=== PATIENT | female | born 1985 | race Caucasian/White ===

== ENCOUNTER 2019-09-14 12:25 | Inpatient (IN) | payer OTHER, BC ==
--- NOTE | 2019-09-14 12:36 | ED ---
Lower Extremity - HPI Summary HPI Summary: The patient is a 34 y/o F arriving by ambulance to [facility] with a chief complaint of right ankle pain with concern for fracture this afternoon. She reports that she was on a ladder four feet up when the ladder slipped due to ice on the ground, causing her to fall and getting her right foot stuck between the ladder and the roof she was on with her weight on the ladder. She is able to move her toes, and she denies any numbness. There is swelling and bruising in the anterior lower leg. She did not hit her head, and the right thigh is not painful. Currently, her pain is rated 5/10 in severity. She was administered 200mcg Fentanyl in the ambulance which helped to alleviate pain. Elevation also helps to control the pain. Movement aggravates the pain. PMHx: left knee dislocation. Former smoker, occasional EtOH, marijuana use. Medications reviewed. Allergies noted. - History of Current Complaint Stated Complaint: FALL ANKLE INJURY Time Seen by Provider: 09/14/19 12:26 Hx Obtained From: Patient Mechanism Of Injury: Fall From Height Of: - four feet Onset of Pain: Immediate Onset/Duration: Minutes Severity Initially: Severe Severity Currently: Moderate Pain Intensity: 5 Pain Scale Used: 0-10 Numeric Timing: Constant Location: Is Discrete @ - right ankle Character Of Pain: Sharp Associated Signs And Symptoms: Positive: Swelling, Bruising. Negative: Other - head injury, right thigh pain, numbness in foot Aggravating Factor(s): Movement Alleviating Factor(s): Rest, Elevation, Other - Fentanyl 200mcg in ambulance - Allergies/Home Medications Allergies/Adverse Reactions: Allergies Allergy/AdvReac Type Severity Reaction Status Date / Time No Known Allergies Allergy Verified 09/14/19 12:42 Home Medications: Home Medications Solifenacin Succinate [Vesicare] 5 mg PO DAILY 09/14/19 [History Confirmed 09/14] PMH/Surg Hx/FS Hx/Imm Hx Endocrine/Hematology History: Denies: Hx Diabetes Musculoskeletal History: Reports: Other Musculoskeletal History - left knee dislocation Sensory History: Denies: Hx Legally Blind, Hx Deafness Opthamlomology History: Denies: Hx Legally Blind EENT History: Denies: Hx Deafness - Surgical History Surgical History: None Surgery Procedure, Year, and Place: none - Family History Known Family History: Negative: Hypertension - Social History Alcohol Use: Occasionally Hx Substance Use: Yes Substance Use Type: Reports: Marijuana Hx Tobacco Use: Yes Smoking Status (MU): Former Smoker Review of Systems Positive: Decreased ROM - right ankle, Other - pain in right ankle; Negative: right thigh pain Positive: Bruising - right anterior ankle, Other - swelling in right anterior ankle Neurological: Other - Negative: head injury Negative: Numbness All Other Systems Reviewed And Are Negative: Yes Physical Exam - Summary Physical Exam Summary: Constitutional: Well-developed, Well-nourished, Alert. (-) Distressed Skin: Bruising to right medial ankle. Abrasion cash. Warm, Dry HENT: Normocephalic; Atraumatic Eyes: Conjunctiva normal Neck: Musculoskeletal ROM normal neck. (-) JVD, (-) Stridor, (-) Nuchal rigidity Cardio: Rhythm regular, rate normal, Heart sounds normal; Intact distal pulses; Radial pulses are 2+ and symmetric. (-) Murmur Pulmonary/Chest wall: Effort normal. (-) Respiratory distress, (-) Wheezes, (-) Rales Abd: Soft, (-) tenderness, (-) Distension, (-) Guarding, (-) Rebound Musculoskeletal: Swelling and deformity of the distal right tib/fib. No ttp foot /ankle or knee. 2+ DP pulse. Normal ROM in all other extremities. (-) Edema Lymph: (-) Cervical adenopathy Neuro: Alert, Oriented x3 Psych: Mood and affect Normal Triage Information Reviewed: Yes Vital Signs Reviewed: Yes Procedures - Sedation Patient Received Moderate/Deep Sedation with Procedure: No - Splinting Right Lower Extremity Location: right ankle Hand-Made Type: plaster Splint: posterior short leg Pre-Proc Neuro Vasc Exam: normal Post-Proc Neuro Vasc Exam: normal, unchanged from pre-exam Diagnostics - Laboratory Result Diagrams: 09/14/19 14:27 09/14/19 14:27 Lab Statement: Any lab studies that have been ordered have been reviewed, and results considered in the medical decision making process. - Radiology R Tib/Fib XR Radiology Interpretation Completed By: Radiologist Summary of Radiographic Findings: Impression: 1. Noncomminuted spiral fracture at the distal diaphysis distal metaphysis junction of the tibia with one cortex width medial and posterior displacement and mild foreshortening. Adjacent grossly noncomminuted distal diaphyseal fracture of the fibula with similar displacement. 2. While obliquity limits assessment there is no gross evidence for widening of the ankle mortise. 3. Negative for more proximal fracture of the tibia or fibula. 4. Soft tissue swelling greatest over the distal medial, lateral, and anterior aspects. ED physician has reviewed this report. R Ankle XR Radiology Interpretation Completed By: Radiologist Summary of Radiographic Findings: Impression: 1. Noncomminuted spiral fracture at the distal diaphysis distal metaphysis junction of the tibia with one cortex width medial and posterior displacement and mild foreshortening. Adjacent grossly noncomminuted distal diaphyseal fracture of the fibula with similar displacement. 2. While obliquity limits assessment there is no gross evidence for widening of the ankle mortise. 3. Negative for more proximal fracture of the tibia or fibula. 4. Soft tissue swelling greatest over the distal medial, lateral, and anterior aspects. ED physician has reviewed this report. Re-Evaluation - Re-Evaluation First Eval Re-Evaluation Time: 14:00 Comment: Splint placed on patient. She continues to be elevated. Lower Extremity Course/Dx - Course Course Of Treatment: 34-year-old female presents with right lower x-ray pain after a fall. - Physical exam with tenderness and deformity of the distal tib- fib. No ankle or foot tenderness. Suspect fracture. 2+ DP pulse. SILT. Plain films show a spiral fracture of the tibia and fibula. Placed in short leg Shaka. - admit to ortho for surgery tmrw am. leg elevated. - Diagnoses Provider Diagnoses: Tibia/fibula fracture - Physician Notifications Discussed Care Of Patient With: Margo Argueta - orthopedics Time Discussed With Above Provider: 14:10 Instructed by Provider To: Other - I discussed the patient's case with Dr. Argueta , and she accepts the patient for admission for surgery. Discharge ED - Sign-Out/Discharge Documenting (check all that apply): Patient Departure - Patient accepted for admission by Dr. Argueta. - Discharge Plan Condition: Stable Disposition: ADMITTED TO [facility] Referrals: No Primary Care Phys,NOPCP [Primary Care Provider] - - Billing Disposition and Condition Condition: STABLE Disposition: Admitted to [facility] - Attestation Statements Document Initiated by Scribe: Yes Documenting Scribe: Devi Gómez Provider For Whom Scribe is Documenting (Include Credential): Dr. Jony Porter MD Scribe Attestation: I, Devi Gómez, scribed for Dr. Jony Porter MD on 09/14/19 at 1537. Scribe Documentation Reviewed: Yes Provider Attestation: The documentation as recorded by the tracyibe, Devi Gómez accurately reflects the service I personally performed and the decisions made by me, Dr. Jony Porter MD Status of Scribe Document: Viewed
[2019-09-14] MEDS ORDERED: Morphine 4 MG/ML VIAL (1 ml) 4 MG/ML VIAL IV ONE ×2 (12:39→13:28)
[2019-09-14] MEDS ORDERED: Ondansetron INJ* 2 MG/ML VIAL IV ONE (12:39)
[2019-09-14] MEDS ORDERED: HYDROmorphone INJ* 0.5 MG/0.5 ML SYRINGE IV SLOW PU ONE (13:52)
[2019-09-14 14:40] LABS: ABS Monocytes 0.4 10^3/ul (0-0.8); ABS Neutrophils 7.8 10^3/ul (1.5-7.7); Hematocrit 37 % (35-47); Hemoglobin 12.4 g/dL (12.0-16.0); Lymphocyte % 10.9 %; Mean Corpuscular HGB Conc 34 g/dL (31-36); Mean Corpuscular Hemoglobin 31 pg (27-31); Mean Corpuscular Volume 91 fL (80-97); Mean Platelet Volume 8.4 fL (7.4-10.4); Platelet Count 277 10^3/uL (150-450); Red Blood Count 4.03 10^6 /uL (3.70-4.87); Red Cell Distribution Width 13 % (10-15); White Blood Count 9.2 10^3/uL (3.5-10.8)
[2019-09-14 14:47] LABS: INR 1.05 (0.82-1.09)
[2019-09-14] MEDS ORDERED: Ondansetron ODT TAB* 4 MG PO PRN (14:49)
[2019-09-14] MEDS ORDERED: Ondansetron INJ* 2 MG/ML VIAL IV PRN (14:49)
[2019-09-14] MEDS ORDERED: diPHENhydraMINE PO* 25 MG PO PRN (14:49)
[2019-09-14] MEDS ORDERED: diPHENhydraMINE IV* 50 MG/ML 1 ml VIAL (BENADRYL) IV PRN (14:49)
[2019-09-14] MEDS ORDERED: Magnesium Hydroxide LIQ* 30 ML UDC PO PRN (14:49)
[2019-09-14] MEDS ORDERED: oxyCODONE TAB* 5 MG TAB PO PRN (14:49)
[2019-09-14 15:09] LABS: Calcium 9.1 mg/dL (8.6-10.3)
[2019-09-14 15:15] LABS: BUN/Creatinine Ratio 13.8 (8-20); EGFR African American 142.3 (>60); EGFR Non-African American 117.6 (>60)
[2019-09-14] MEDS: oxyCODONE TAB* 5 MG TAB PO PRN ×2 (15:19→19:41)
--- NOTE | 2019-09-14 15:25 | PN ---
Progress Note - Progress Note Date of Service: 09/14/19 Note: Admission H&P dictated, please see report for full details. She has a right tib/fib fracture and will be taken to the OR with Dr Bernal Elevate and ice her RLE to reduce swelling, keep splint CDI. Her is Krystian Loya [phone]
--- NOTE | 2019-09-14 16:43 | HP ---
ADMISSION HISTORY AND PHYSICAL: DATE OF ADMISSION: 09/14/19 ATTENDING ORTHOPEDIC PROVIDER: Dr. aSul Bernal.* (DICTATED BY LASHELL WADE) PRIMARY CARE PROVIDER: Dr. Bardales in [place]. ADMISSION DIAGNOSIS: Right tibia and fibula fracture. CHIEF COMPLAINT: Right tib-fib fracture. HISTORY OF PRESENT ILLNESS: The patient is a 34-year-old female who presents to [facility] on 09/14/19 after sustaining a fall at work from a height of approximately 4 feet. She was standing on a ladder kalyani and rode the ladder down to the ground, her right foot turning underneath of her. She had immediate right ankle pain without pain elsewhere. She did not hit her head, lose consciousness or suffer any other injuries. She was unable to bear weight and her brought her into the emergency room. In the emergency room, x-rays displayed right distal tibia and fibula fractures and she was placed in a short leg splint and elevated on pillows with ice. I am seeing her after she has been splinted by the emergency room. Her pain is well controlled currently, though she has sharp severe nonradiating pain with any movement which is relieved with rest. PAST MEDICAL HISTORY: Significant for endometriosis, overactive bladder. PAST SURGICAL HISTORY: The patient has a history of knee arthroscopy on the left knee. She has no history of complications with anesthesia. MEDICATIONS: 1. contraceptive pill. The patient is unsure of brand. 2. VESIcare 5 mg daily. ALLERGIES: No known drug allergies. FAMILY HISTORY: No history of complications with anesthesia. SOCIAL HISTORY: The patient lives at home with her Krystian in [place]. They both work as metal roofers. She sustained this injury while at work. She denies any alcohol use. She does not smoke any cigarettes. REVIEW OF SYSTEMS: General: Negative for fever, chills, or recent illness. HEENT: Negative for any head trauma, headache, or change in vision. Cardiac: Negative for any chest pain. No history of IA. Respiratory: Negative for any shortness of breath. GI: Negative for nausea, vomiting, diarrhea. : Negative for dysuria. Positive for overactive bladder. Musculoskeletal: Positive for right ankle pain. No pain of left leg or bilateral upper extremities. Neuro: Denies any decreased sensation, numbness or tingling of the extremities. Hematology: No history of blood clots. PHYSICAL EXAMINATION GENERAL: Well appearing, in no acute distress. VITAL SIGNS: Temperature 98.2, pulse rate 94, oxygen saturation 100% on room air, respiratory rate 17, blood pressure 160/76. HEENT: Normocephalic, atraumatic. Extraocular movements are intact. LUNGS: Clear to auscultation bilaterally without wheezes, rales, or rhonchi. CARDIAC: S1, S2. No murmur. Regular rate and rhythm. ABDOMEN: Bowel sounds normoactive. Soft, nontender. No guarding. No rigidity. MUSCULOSKELETAL: Nontender to palpation of midline cervical, thoracic, or lumbar spine. Bilateral upper extremities: Skin envelope intact. Nontender to palpation. Able to flex and extend digits, wrists, elbows, and shoulders without any pain. Lower extremities: Left lower extremity, skin envelope intact; nontender to palpation; able to flex and extend MTPs, ankle, knee, and hip without pain. Right lower extremity, the patient has a lower leg splint. Visible skin is intact. There is no tenderness to palpation of the knee, femur , or hip. Able to flex and extend at the MTPs, knee and hip without any pain. NEURO: Sensation intact to light touch distally bilateral lower extremities. VASCULAR: Capillary refill less than 2 seconds distally bilateral lower extremities. DIAGNOSTIC STUDIES/LAB DATA: Right ankle x-ray demonstrates noncomminuted spiral fracture at the distal diaphysis and distal metaphysis junction of the tibia with 1 cortex with medial and posterior displacement with mild shortening , distal diaphyseal fracture of the fibula with similar displacement. Laboratory studies: Hemoglobin 12.4, hematocrit 37, platelet count 277. INR 1.05. Sodium 137, potassium 4.0, creatinine 0.58. ASSESSMENT: Right tibia and fibula fracture. PLAN: The patient will be nonweightbearing on the right lower extremity. She will keep it elevated on 4 pillows as well as with ice. . CT of the right lower leg, CBC, BMP, INR, type and screen, Chest x-ray and EKG have been ordered. The patient can have a regular diet. I will start her on subcu heparin 5000 units q.8 hours. The patient will tentatively go to the operating room on , 09/16/19, with Dr. Saul Bernal for ORIF of right tibia and fibula fracture. She will need to be n.p.o. and heparin stopped at midnight on Friday night. RCRI: The patient has 0 points on the RCRI scale with no high -risk surgery planned, no ischemic heart disease, no congestive heart failure, no history of cerebrovascular disease, no pre-op insulin, and preop creatinine is less than 2. LASHELL WADE [id number]/[facility] #: [id number] [facility]ALTHAlexx
[2019-09-14] MEDS: Cyclobenzaprine TAB* 10 MG PO PRN (16:51)
[2019-09-14] MEDS: traMADol TAB* 50 MG PO PRN (16:52)
[2019-09-14] MEDS: Morphine INJ* 2 MG/ML 1 ML SYRINGE (TWO MG - NEW SYRINGE VERSION) IV PRN ×2 (18:35→23:11)
[2019-09-14] MEDS: Docusate CAP* 100 MG PO SCH (19:41)
[2019-09-14] MEDS: Magnesium Hydroxide LIQ* 30 ML UDC PO SCH (19:41)
[2019-09-14] MEDS: Acetaminophen TAB* 325 MG PO SCH (23:11)
[2019-09-14] MEDS: Heparin VIAL(*) 5000 UNITS/ML VIAL (FIVE THOUSAND) SUBCUT SCH (23:11)
[2019-09-15] MEDS: traMADol TAB* 50 MG PO PRN ×3 (02:23→21:46)
[2019-09-15] MEDS: Cyclobenzaprine TAB* 10 MG PO PRN (02:24)
[2019-09-15] MEDS: Heparin VIAL(*) 5000 UNITS/ML VIAL (FIVE THOUSAND) SUBCUT SCH ×3 (05:28→21:47)
[2019-09-15] MEDS: Acetaminophen TAB* 325 MG PO SCH ×3 (05:28→21:45)
[2019-09-15] MEDS: oxyCODONE TAB* 5 MG TAB PO PRN ×4 (05:28→22:30)
[2019-09-15] MEDS: Morphine INJ* 2 MG/ML 1 ML SYRINGE (TWO MG - NEW SYRINGE VERSION) IV PRN (06:42)
--- NOTE | 2019-09-15 07:28 | PN ---
Progress Note - Progress Note Date of Service: 09/15/19 SOAP: Subjective: Pt. is alert, reports R leg pain moderate. Objective: Vital Signs: Temp Pulse Resp BP Pulse Ox 97.8 F 84 16 150/72 100 09/15/19 03:54 09/15/19 03:54 09/15/19 06:42 09/15/19 03:54 09/15/19 03:54 Laboratory Results - last 24 hr 09/14/19 09/14/19 09/14/19 14:27 14:27 14:27 WBC 9.2 RBC 4.03 Hgb 12.4 Hct 37 MCV 91 MCH 31 MCHC 34 RDW 13 Plt Count 277 MPV 8.4 Neut % (Auto) 84.7 Lymph % (Auto) 10.9 [place] % (Auto) 4.3 Eos % (Auto) 0.0 Baso % (Auto) 0.1 Absolute Neuts (auto) 7.8 H Absolute Lymphs (auto) 1.0 Absolute Monos (auto) 0.4 Absolute Eos (auto) 0.0 Absolute Basos (auto) 0.0 Absolute Nucleated RBC 0.0 Nucleated RBC % 0.0 INR (Anticoag Therapy) 1.05 APTT Cancelled Sodium 137 Potassium 4.0 Chloride 108 Carbon Dioxide 24 Anion Gap 5 BUN 8 Creatinine 0.58 Est GFR ( Amer) 142.3 Est GFR (Non-Af Amer) 117.6 BUN/Creatinine Ratio 13.8 Glucose 110 H Calcium 9.1 09/14/19 14:27 WBC RBC Hgb Hct MCV MCH MCHC RDW Plt Count MPV Neut % (Auto) Lymph % (Auto) [place] % (Auto) Eos % (Auto) Baso % (Auto) Absolute Neuts (auto) Absolute Lymphs (auto) Absolute Monos (auto) Absolute Eos (auto) Absolute Basos (auto) Absolute Nucleated RBC Nucleated RBC % INR (Anticoag Therapy) APTT 32.2 Sodium Potassium Chloride Carbon Dioxide Anion Gap BUN Creatinine Est GFR ( Amer) Est GFR (Non-Af Amer) BUN/Creatinine Ratio Glucose Calcium RLE - splint intact and leg is elevated, distally intact sens lt, +flex/ext toes , less than 3 seconds CR Assessment: 34 yo F s/p fall with R distal comminuted closed tibia/fibula fracture Plan: Continue elevation and ice to control swelling. Bedrest with prn analgesia Dr. Simon to assume care and see patient today - tentative ORIF 09/16/19. DVT proph
[2019-09-15] MEDS: Docusate CAP* 100 MG PO SCH ×2 (09:01→21:46)
[2019-09-15] MEDS: CMCS: Solifenacin(NF) 5 MG TAB PO SCH (09:01)
[2019-09-15] MEDS: Magnesium Hydroxide LIQ* 30 ML UDC PO SCH ×2 (09:01→21:37)
[2019-09-15] MEDS: Vitamin THERAPEUTIC TAB PO SCH (09:03)
--- NOTE | 2019-09-15 10:50 | PN ---
Progress Note - Progress Note Date of Service: 09/15/19 Note: CC: right leg pain HPI: 34F fell down ladder while kalyani with isolated right leg/ankle pain. denies HS/LOC or pain anywhere else. Reports pain improved since splinted and elevated. Denies prior leg/ankle injuries. No smoking, DM or h/o VTE. She does take an OCP. PSH: L knee scope PE: Temp Pulse Resp BP Pulse Ox 97.4 F 70 18 145/74 100 09/15/19 07:28 09/15/19 07:28 09/15/19 09:04 09/15/19 07:28 09/15/19 07:28 Calm, comfortable lying in bed. Alert and oriented. Moves b/l UE and LLE easily without pain or TTP RLE: splinted. Toes wwp with good cap refill. Mild swelling in toes No TTP about knee Imaging: xrays and CT show comminuted distal tib/fib fx's with extension down to tibial plafond. Also a small proximal fibula fx. A/P: Healthy 34yoF s/p mechanical fall with comminuted, displaced right tib/fib fx's with intraarticular extension. Disc diagnosis and tx options including non- op and op. My rec is operative ORIF of tibia and possibly fibula. Disc surgery, recovery, and risks at length. Pt would like to move forward with surgery. Will plan on 2 months NWB postop. -Plan for OR tomorrow so NPO at MN -NWB RLE in splint with strict elevation -SQ heparin. Will need DVT prophylaxis postop All questions answered. Saul Bernal MD
[2019-09-15] MEDS ORDERED: Buffered Lidocaine 1% SYRIN* 1 ML/SYRINGE INTRADERM ONE (15:07)
[2019-09-16] MEDS: oxyCODONE TAB* 5 MG TAB PO PRN ×2 (04:58→12:07)
[2019-09-16] MEDS ORDERED: Lactated Ringers 1000 ML Bag* 1,000 ML IV SCH ×2 (06:00→22:30)
[2019-09-16] MEDS: Acetaminophen TAB* 325 MG PO SCH ×2 (06:17→14:02)
[2019-09-16] MEDS: traMADol TAB* 50 MG PO PRN (06:19)
[2019-09-16 08:38] LABS: ABS Lymphocytes 1.3 10^3/ul (1.0-4.8); ABS Monocytes 0.4 10^3/ul (0-0.8); ABS Neutrophils 6.4 10^3/ul (1.5-7.7); Eosinophil % 0.2 %; Hematocrit 37 % (35-47); Hemoglobin 12.6 g/dL (12.0-16.0); Lymphocyte % 15.8 %; Mean Corpuscular HGB Conc 35 g/dL (31-36); Mean Corpuscular Hemoglobin 32 pg (27-31); Mean Corpuscular Volume 91 fL (80-97); Mean Platelet Volume 8.1 fL (7.4-10.4); Platelet Count 267 10^3/uL (150-450); Red Blood Count 4.01 10^6 /uL (3.70-4.87); Red Cell Distribution Width 13 % (10-15); White Blood Count 8.2 10^3/uL (3.5-10.8)
[2019-09-16 08:48] LABS: INR 1.06 (0.82-1.09)
[2019-09-16 08:56] LABS: BUN/Creatinine Ratio 11.9 (8-20); Calcium 9.3 mg/dL (8.6-10.3); EGFR African American 120.5 (>60); EGFR Non-African American 99.6 (>60); Potassium 3.9 mmol/L (3.5-5.0)
[2019-09-16] MEDS: Vitamin THERAPEUTIC TAB PO SCH (10:51)
[2019-09-16] MEDS: CMCS: Solifenacin(NF) 5 MG TAB PO SCH (10:51)
[2019-09-16] MEDS: Magnesium Hydroxide LIQ* 30 ML UDC PO SCH ×2 (10:51→23:32)
[2019-09-16] MEDS: Docusate CAP* 100 MG PO SCH ×2 (10:51→23:31)
[2019-09-16] MEDS ORDERED: ceFAZolin 2 GM in NS PREMIX(*) 2 GM/100 ML BAG IVPB ONE (15:43)
[2019-09-16] MEDS ORDERED: Lidocaine 2% PF * 5 ML VIAL ONE ×2 (17:25→17:33)
[2019-09-16] MEDS ORDERED: Propofol* 10 MG/ML 20 ML BTL ONE (17:25)
[2019-09-16] MEDS ORDERED: fentaNYL* 50 MCG/ML 2 ML VIAL (100 MCG VIAL) ONE (17:28)
[2019-09-16] MEDS ORDERED: Midazolam* 1 MG/ML 2 ML VIAL (2 MG) ONE (17:28)
[2019-09-16] MEDS ORDERED: ROPIVACAINE 5 MG/ML 30 ML BTL (0.5%) ONE (17:29)
[2019-09-16] MEDS ORDERED: Dexmedetomidine* 200 MCG/2 ML 2 ML VIAL ONE (17:29)
[2019-09-16] MEDS ORDERED: Neostigmine Methylsulfate* 1 MG/ML 10 ML VIAL (1 mg/ml) ONE (17:39)
[2019-09-16] MEDS ORDERED: Glycopyrrolate IV* 0.2 MG/ML 1 ML VIAL ONE ×2 (17:39→17:40)
[2019-09-16] MEDS ORDERED: Ondansetron INJ* 2 MG/ML VIAL ONE (20:07)
[2019-09-16] MEDS ORDERED: Metoclopramide IV* 5 MG/ML 2 ML VIAL ONE (20:07)
[2019-09-16] MEDS ORDERED: Ketorolac INJ* 30 MG/ML 1 ML VIAL ONE (20:07)
[2019-09-16] MEDS ORDERED: Acetaminophen IV 1GM/100ML * 100 ML ONE (20:08)
[2019-09-16] MEDS ORDERED: fentaNYL* 50 MCG/ML 2 ML VIAL (100 MCG VIAL) IV PRN (20:15)
[2019-09-16] MEDS ORDERED: DiMENhydriNATE IV* 50 MG/ML VIAL IV PUSH PRN (20:15)
[2019-09-16] MEDS ORDERED: oxyCODONE TAB* 5 MG TAB PO PRN (20:15)
[2019-09-16] MEDS ORDERED: Naloxone* 0.4 MG/ML 1 ML VIAL IV PRN (20:15)
--- NOTE | 2019-09-16 20:41 | OP ---
Operative Report - Blank - Operative Report Date of Operation: 09/16/19 Note: PATIENT: Delia Loya DATE OF : 1985 DATE OF SURGERY: 09/16/2019 SURGEON: Saul Bernal MD YARD CALLER: LASHELL Camargo, whos assistance was necessary for positioning, retraction, help with instrumentation, and closure. ANESTHESIOLOGIST: Dr. Maria/Dr. Melgoza PREOPERATIVE DIAGNOSIS: Right tibia fracture. Right proximal fibula fracture. Right fibular shaft fracture. Right posterior malleolus fracture. POSTOPERATIVE DIAGNOSIS: Right tibia fracture. Right proximal fibula fracture. Right fibular shaft fracture. Right posterior malleolus fracture. OPERATION: 1. Right tibia fracture open reduction and internal fixation 2. Closed treatment of right proximal fibula fracture. 3. Closed treatment of right fibular shaft fracture. 4. Closed treatment of right posterior malleolus fracture. ANESTHESIA: General IMPLANTS: Synthes distal medial tibial plate and screws TOURNIQUET TIME: Less than 2 hours with a well-padded thigh tourniquet at 250mmHg SPECIMENS: none ESTIMATED BLOOD LOSS: minimal COMPLICATIONS: none STATUS: Stable from the operating room to the recovery room and then to the hospital floor. INDICATIONS FOR PROCEDURE: Delia fell down a ladder sustaining the above injuries. Both operative and non- operative treatment alternatives were reviewed. Further, the nature and risks of surgery were reviewed in careful detail. Our discussions regarding the risks of surgery included, but were not limited to, infection, wound problems, nerve injury, neuroma, RSD, persistent symptoms, nonunion, malunion, hardware failure , blood clot, need for further surgery, failure of the surgery, and even the remote chance of catastrophic complication. DESCRIPTION OF PROCEDURE: The patient was seen in the preoperative holding unit and informed written consent was obtained. The appropriate extremity was marked. The patient was then brought to the operating room and carefully positioned on the operating room table. Anesthesia was induced. All bony prominences were padded with great care. A well-padded thigh tourniquet was placed. A chlorhexidine based pre- scrub was performed followed by a chloraprep prep and drape in standard sterile fashion. A surgical safety pause was then conducted in which we confirmed the appropriate patient, extremity, planned procedure, availability of equipment, indication and administration of prophylactic antibiotics, and DVT prophylaxis in the form of a compression boot on the non-surgical extremity. I performed an Esmarch exsanguination of the limb, and the tourniquet was inflated. I made a longitudinal incision at the site of the fracture and used a reduction clamp and axial traction to reduce the fracture. This was confirmed fluoroscopically. I then placed 2 interfragmentary lag screws across the fracture site, which provided good compression. The provisional reduction clamp was then removed and the fracture was held well reduced. I then made a longitudinal incision over the medial malleolus. A Saenz was used to make a path for a medial sided tibial plate proximally. A Synthes distal medial tibial plate was then slid up the tibia and a retrograde fashion. Placement was confirmed fluoroscopically. A nonlocking cortical screw was then placed in the oblong hole to compress the plate down to bone. Proximal nonlocking cortical screws were placed in a percutaneous fashion. Distally, locking screws were placed. Fluoroscopy was used throughout to confirm placement of the plate and screws. After fixing the tibia, the fibular shaft fracture lined up nicely on the AP and lateral views, so I elected to treat this in a closed manner. Similarly, the proximal fibula fracture remained nondisplaced, so I elected to treat this in a closed manner as well. I performed stress examinations of the ankle. This included an external rotation stress test which did not show any medial clear space or syndesmotic widening. On a lateral, I did a posteriorly directed stress, which did not displace the posterior tibial plafond fractures. Therefore, I elected to treat the posterior malleolus fractures in a closed manner. The wounds were copiously irrigated and closed in a layered fashion utilizing 3- 0 Monocryl suture and skin zehra. A well-padded AO plaster splint was placed with the ankle in a neutral position. The patient was then awakened from anesthesia and transferred to the recovery room in stable condition. There were no complications. All needle and sponge counts were correct at the end of the case. ATTESTATION: I attest I was present and scrubbed and performed the critical portions of the procedure myself. POSTOPERATIVE PLAN: The plan is NWB in the operative extremity for 2 months postop. Follow-up in 2 weeks for staple removal. The plan is for 40mg lovenox daily for 1 month postop DVT prophylaxis.
[2019-09-17] MEDS: Acetaminophen TAB* 325 MG PO SCH ×4 (01:24→22:04)
[2019-09-17] MEDS: ceFAZolin 1 GM* X 3 DOSES POST-OP Q8H (AddVan) IVPB SCH ×6 (02:31→19:13)
[2019-09-17 04:42] LABS: ABS Lymphocytes 0.7 10^3/ul (1.0-4.8); ABS Monocytes 0.2 10^3/ul (0-0.8); ABS Neutrophils 7.5 10^3/ul (1.5-7.7); Hematocrit 34 % (35-47); Hemoglobin 11.9 g/dL (12.0-16.0); Lymphocyte % 8.8 %; Mean Corpuscular HGB Conc 35 g/dL (31-36); Mean Corpuscular Hemoglobin 32 pg (27-31); Mean Corpuscular Volume 91 fL (80-97); Mean Platelet Volume 8.4 fL (7.4-10.4); Platelet Count 253 10^3/uL (150-450); Red Blood Count 3.75 10^6 /uL (3.70-4.87); Red Cell Distribution Width 13 % (10-15); White Blood Count 8.5 10^3/uL (3.5-10.8)
[2019-09-17] MEDS: CMCS: Solifenacin(NF) 5 MG TAB PO SCH (08:59)
[2019-09-17] MEDS: Vitamin THERAPEUTIC TAB PO SCH (08:59)
[2019-09-17] MEDS: Magnesium Hydroxide LIQ* 30 ML UDC PO SCH ×2 (08:59→19:12)
[2019-09-17] MEDS: Docusate CAP* 100 MG PO SCH ×2 (08:59→19:12)
[2019-09-17] MEDS: Enoxaparin(*) 40 MG/0.4 ML SYR SUBCUT SCH (09:00)
[2019-09-17] MEDS: oxyCODONE TAB* 5 MG TAB PO PRN ×2 (18:44→23:54)
[2019-09-17] MEDS: traMADol TAB* 50 MG PO PRN (22:04)
--- NOTE | 2019-09-17 23:21 | PN ---
Progress Note - Progress Note Date of Service: 09/17/19 SOAP: Subjective: Pt seen and examined at bedside. Minimal complaint of pain. States toes still numb. Denies CP, SOB, F/C. Vital Signs: Temp Pulse Resp BP Pulse Ox 98.2 F 104 18 129/66 100 09/17/19 19:19 09/17/19 19:19 09/17/19 22:04 09/17/19 19:19 09/17/19 19:19 Laboratory Last Values WBC 8.5 10^3/uL (3.5-10.8) 09/17/19 04:33 RBC 3.75 10^6 /uL (3.70-4.87) 09/17/19 04:33 Hgb 11.9 g/dL (12.0-16.0) L 09/17/19 04:33 Hct 34 % (35-47) L 09/17/19 04:33 MCV 91 fL (80-97) 09/17/19 04:33 MCH 32 pg (27-31) H 09/17/19 04:33 MCHC 35 g/dL (31-36) 09/17/19 04:33 RDW 13 % (10-15) 09/17/19 04:33 Plt Count 253 10^3/uL (150-450) 09/17/19 04:33 MPV 8.4 fL (7.4-10.4) 09/17/19 04:33 Neut % (Auto) 88.3 % 09/17/19 04:33 Lymph % (Auto) 8.8 % 09/17/19 04:33 [place] % (Auto) 2.7 % 09/17/19 04:33 Eos % (Auto) 0.0 % 09/17/19 04:33 Baso % (Auto) 0.2 % 09/17/19 04:33 Absolute Neuts (auto) 7.5 10^3/ul (1.5-7.7) 09/17/19 04:33 Absolute Lymphs (auto) 0.7 10^3/ul (1.0-4.8) L 09/17/19 04:33 Absolute Monos (auto) 0.2 10^3/ul (0-0.8) 09/17/19 04:33 Absolute Eos (auto) 0.0 10^3/ul (0-0.6) 09/17/19 04:33 Absolute Basos (auto) 0.0 10^3/ul (0-0.2) 09/17/19 04:33 Absolute Nucleated RBC 0.0 10^3/ul 09/17/19 04:33 Nucleated RBC % 0.0 09/17/19 04:33 INR (Anticoag Therapy) 1.06 (0.82-1.09) 09/16/19 08:27 APTT 32.2 seconds (26.0-38.0) 09/14/19 14:27 Sodium 135 mmol/L (135-145) 09/16/19 08:27 Potassium 3.9 mmol/L (3.5-5.0) 09/16/19 08:27 Chloride 104 mmol/L (101-111) 09/16/19 08:27 Carbon Dioxide 24 mmol/L (22-32) 09/16/19 08:27 Anion Gap 7 mmol/L (2-11) 09/16/19 08:27 BUN 8 mg/dL (6-24) 09/16/19 08:27 Creatinine 0.67 mg/dL (0.51-0.95) 09/16/19 08:27 Est GFR ( Amer) 120.5 (>60) 09/16/19 08:27 Est GFR (Non-Af Amer) 99.6 (>60) 09/16/19 08:27 BUN/Creatinine Ratio 11.9 (8-20) 09/16/19 08:27 Glucose 88 mg/dL (70-100) 09/16/19 08:27 Calcium 9.3 mg/dL (8.6-10.3) 09/16/19 08:27 Blood Type O Negative 09/15/19 05:47 Antibody Screen Negative 09/15/19 05:47 Objective: A&O x3, NAD Splint C/D/I, Decrease sensation RLE, Good cap refill, Wiggles toes. Assessment: 34 yo s/p ORIF Right ankle trimalleolar fracture POD #1 Plan: OOB, PT/OT NWB RLE for 2 months postop Pain control Continue Lovenox 40mg SC for 1 month postop Continue abx for 24 hours Likely D/C home 09/[address] Bernal in 2 weeks
[2019-09-18] MEDS: Morphine INJ* 2 MG/ML 1 ML SYRINGE (TWO MG - NEW SYRINGE VERSION) IV PRN ×2 (02:31→06:13)
[2019-09-18] MEDS: oxyCODONE TAB* 5 MG TAB PO PRN ×5 (03:58→21:03)
[2019-09-18] MEDS: Acetaminophen TAB* 325 MG PO SCH ×3 (06:06→22:23)
[2019-09-18] MEDS: Magnesium Hydroxide LIQ* 30 ML UDC PO SCH ×2 (08:02→20:58)
[2019-09-18] MEDS: CMCS: Solifenacin(NF) 5 MG TAB PO SCH (08:03)
[2019-09-18] MEDS: Vitamin THERAPEUTIC TAB PO SCH (08:03)
[2019-09-18] MEDS: Docusate CAP* 100 MG PO SCH ×2 (08:03→20:58)
[2019-09-18] MEDS: Enoxaparin(*) 40 MG/0.4 ML SYR SUBCUT SCH (08:04)
[2019-09-18] MEDS: traMADol TAB* 50 MG PO PRN (11:00)
[2019-09-18] MEDS: Cyclobenzaprine TAB* 10 MG PO PRN ×2 (22:27)
[2019-09-19] MEDS: oxyCODONE TAB* 5 MG TAB PO PRN ×3 (01:46→11:45)
[2019-09-19] MEDS: Cyclobenzaprine TAB* 10 MG PO PRN ×2 (04:40→10:52)
[2019-09-19] MEDS: traMADol TAB* 50 MG PO PRN ×2 (04:41→10:52)
[2019-09-19] MEDS: Acetaminophen TAB* 325 MG PO SCH (06:19)
[2019-09-19 07:26] VITALS: BP 141/72
[2019-09-19] MEDS: Vitamin THERAPEUTIC TAB PO SCH (07:27)
[2019-09-19] MEDS: CMCS: Solifenacin(NF) 5 MG TAB PO SCH (07:27)
[2019-09-19] MEDS: Enoxaparin(*) 40 MG/0.4 ML SYR SUBCUT SCH (07:27)
[2019-09-19] MEDS: Docusate CAP* 100 MG PO SCH (07:27)
[2019-09-19] MEDS: Magnesium Hydroxide LIQ* 30 ML UDC PO SCH (07:31)
--- NOTE | 2019-09-19 10:06 | PN ---
Progress Note - Progress Note Date of Service: 09/19/19 SOAP: Subjective: resting comfortably, pain well controlled Objective: Vital Signs Temp Pulse Resp BP Pulse Ox 97.2 F 78 18 141/72 100 09/19/19 07:25 09/19/19 07:25 09/19/19 09:22 09/19/19 07:25 09/19/19 07:25 Laboratory Last Values WBC 8.5 10^3/uL (3.5-10.8) 09/17/19 04:33 RBC 3.75 10^6 /uL (3.70-4.87) 09/17/19 04:33 Hgb 11.9 g/dL (12.0-16.0) L 09/17/19 04:33 Hct 34 % (35-47) L 09/17/19 04:33 MCV 91 fL (80-97) 09/17/19 04:33 MCH 32 pg (27-31) H 09/17/19 04:33 MCHC 35 g/dL (31-36) 09/17/19 04:33 RDW 13 % (10-15) 09/17/19 04:33 Plt Count 253 10^3/uL (150-450) 09/17/19 04:33 MPV 8.4 fL (7.4-10.4) 09/17/19 04:33 Neut % (Auto) 88.3 % 09/17/19 04:33 Lymph % (Auto) 8.8 % 09/17/19 04:33 [place] % (Auto) 2.7 % 09/17/19 04:33 Eos % (Auto) 0.0 % 09/17/19 04:33 Baso % (Auto) 0.2 % 09/17/19 04:33 Absolute Neuts (auto) 7.5 10^3/ul (1.5-7.7) 09/17/19 04:33 Absolute Lymphs (auto) 0.7 10^3/ul (1.0-4.8) L 09/17/19 04:33 Absolute Monos (auto) 0.2 10^3/ul (0-0.8) 09/17/19 04:33 Absolute Eos (auto) 0.0 10^3/ul (0-0.6) 09/17/19 04:33 Absolute Basos (auto) 0.0 10^3/ul (0-0.2) 09/17/19 04:33 Absolute Nucleated RBC 0.0 10^3/ul 09/17/19 04:33 Nucleated RBC % 0.0 09/17/19 04:33 INR (Anticoag Therapy) 1.06 (0.82-1.09) 09/16/19 08:27 APTT 32.2 seconds (26.0-38.0) 09/14/19 14:27 Sodium 135 mmol/L (135-145) 09/16/19 08:27 Potassium 3.9 mmol/L (3.5-5.0) 09/16/19 08:27 Chloride 104 mmol/L (101-111) 09/16/19 08:27 Carbon Dioxide 24 mmol/L (22-32) 09/16/19 08:27 Anion Gap 7 mmol/L (2-11) 09/16/19 08:27 BUN 8 mg/dL (6-24) 09/16/19 08:27 Creatinine 0.67 mg/dL (0.51-0.95) 09/16/19 08:27 Est GFR ( Amer) 120.5 (>60) 09/16/19 08:27 Est GFR (Non-Af Amer) 99.6 (>60) 09/16/19 08:27 BUN/Creatinine Ratio 11.9 (8-20) 09/16/19 08:27 Glucose 88 mg/dL (70-100) 09/16/19 08:27 Calcium 9.3 mg/dL (8.6-10.3) 09/16/19 08:27 Blood Type O Negative 09/15/19 05:47 Antibody Screen Negative 09/15/19 05:47 splint c/d/i PE: 2+ DP pulse and intact sensation, moving toes Assessment: s/p ORIF RLE Plan: 1) NWB RLE 2) Home today; F/U with Dolores in 2 weeks
--- NOTE | 2019-09-19 10:46 | DS ---
DISCHARGE SUMMARY: DATE OF ADMISSION: 09/14/19 DATE OF DISCHARGE: 09/19/19 PRINCIPAL DIAGNOSIS: Right tib-fib fracture. DISCHARGE DIAGNOSIS: Right tib-fib fracture. PHYSICIAN: Saul Bernal MD ATTENDING PROVIDER: Margo Argueta MD * (DICTATED BY LASHELL GAMBLE) DISCHARGE DISPOSITION: Discharged to home in stable condition. HISTORY OF PRESENT ILLNESS: Ms. Loya is a 34-year-old female who fell at work from approximately 4 feet sustaining a right tib-fib fracture. Ms. Loya underwent ORIF of the right tibia on 09/16/19. She tolerated the procedure well. Postoperatively, she was nonweightbearing on the right lower extremity. She was placed on Lovenox injections daily for DVT prophylaxis. On postop day 1 , her H and H was 11 and 34, her vital signs remained stable and she was ambulating well with a walker. She was discharged home. DISCHARGE MEDICATIONS: 1. Lovenox 40 mg subcu once a day for 30 days. 2. Oxycodone 5 mg 1 tab every 4 to 6 hours as needed for pain. 3. Colace 100 mg tabs 2 to 3 daily as needed for constipation. 4. Tylenol 500 mg 1 to 2 tabs every 6 hours as needed. PHYSICAL EXAM UPON DISCHARGE: This wound was clean, dry, and intact. She is able to wiggle her toes. She has 2+ dorsalis pedis pulse and intact sensation. DISCHARGE INSTRUCTIONS: She was discharged to home. She was given oxycodone 5 mg to take every 4 to 6 hours as needed for pain. She can also take Tylenol 500 mg 1 to 2 tabs every 6 hours. She is nonweightbearing of the right lower extremity. She is going to do Lovenox injections daily for a month. These medications were sent to her pharmacy. She will follow up with Dr. Bernal in 2 weeks. She is going to keep this wound clean, dry, and intact until her followup appointment. LASHELL GAMBLE [id number]/[facility] #: [id number] MTDD
== END 2019-09-19 11:50 | disposition home or self-care (01) | DRG 313 ==
LOC: ED 12:25 → SSU 14:49
PROVIDERS: ADMIT Orthopaedic Surgery Adult Reconstructive Orthopaedic Surgery; ATTEND Orthopaedic Surgery
PROC: 2W3LX1Z Immobilization of Right Lower Extremity using Splint (ICD-10-PCS; 2019-09-14)
PROC: 0QSJXZZ Reposition Right Fibula, External Approach (ICD-10-PCS; 2019-09-16)
PROC: 0QSGXZZ Reposition Right Tibia, External Approach (ICD-10-PCS; 2019-09-16)
PROC: 0QSG34Z Reposition Right Tibia with Internal Fixation Device, Percutaneous Approach (ICD-10-PCS; principal; 2019-09-16 17:45)
DX: S82.301A Unspecified fracture of lower end of right tibia, initial encounter for closed fracture (principal); S82.831A Other fracture of upper and lower end of right fibula, initial encounter for closed fracture; W11.XXXA Fall on and from ladder, initial encounter; N80.9 Endometriosis, unspecified; N32.81 Overactive bladder; E66.9 Obesity, unspecified; S82.491A Other fracture of shaft of right fibula, initial encounter for closed fracture; S82.891A Other fracture of right lower leg, initial encounter for closed fracture; Y92.89 Other specified places as the place of occurrence of the external cause; Z87.891 Personal history of nicotine dependence; Z68.32 Body mass index [BMI] 32.0-32.9, adult
CPT/HCPCS: 36415; 71046; 76000; 80048; 85025; 85610; 85730; 86850; 86900; 86901; 93005; 99284; A9270-GY; C1713; C1776; J0690; J1170; J1644; J1650; J1885; J2250; J2270; J2405; J2704; J2710; J2765; J2795; J3010